=== PATIENT | female | born 1990 | race Caucasian/White ===

== ENCOUNTER 2018-10-30 12:28 | Emergency (ER) | payer BC ==
[~2018-10-30] VITALS: Ht 160 cm; Wt 64.0 kg
[~2018-10-30 12:28] MED LIST: IBUP-1542 PO
[2018-10-30 12:32] VITALS: Ht 160 cm; Wt 64.0 kg
[2018-10-30] MEDS ORDERED: IBUPROFEN 800 MG TAB PO ONE (15:00)
[2018-10-30 16:14] VITALS: BP 116/77; PULSE 66; RESP 18
== END 2018-10-30 16:17 | disposition home or self-care (01) ==
LOC: FTE 12:28
DX: S80.12XA Contusion of left lower leg, initial encounter (principal); M25.462 Effusion, left knee; W18.39XA Other fall on same level, initial encounter; Y92.9 Unspecified place or not applicable
CPT/HCPCS: 73562; 85025; 85610; 85730; 93971; 99285; Z7610